=== PATIENT | male | born 1945 | race Caucasian/White ===

== ENCOUNTER 2017-07-11 16:19 | Emergency (ER) | payer MEDICARE ==
--- NOTE | 2017-07-11 16:39 | ER Document Report ---
ED Medical Screen (RME) - General Chief Complaint: Urinary Problem Stated Complaint: BLOOD IN URINE Time Seen by Provider: 07/11/17 16:33 Mode of Arrival: Ambulatory Information source: Patient Notes: 72 yo with bladder cancer tx by dr. [email or web address] in [place] , bladder infusions 1 month ago, appt 07-16-17 for cystoscopy- oncologist [facility] (Chemo 1 year ago- prostate was "zapped" to shrink it 2 years ago). Since the bladde infusions occasionally gets blood clots bleeding, but yesterday has lots of blood 10 x worse. Usually has frequent urination but not all this blood. It would not slow up. No anticoagulants. Baby aspirin per day. 2 weeks of midline back pain [place] with urination. No fever. No nausea. No hx kidney stones. TRAVEL OUTSIDE OF THE [place] IN LAST 30 DAYS: No - Related Data Allergies/Adverse Reactions: No Known Allergies Allergy (Verified 07/22/15 18:03) Past Medical History Endocrine Medical History: Reports: Hx Diabetes Mellitus Type 2 Past Surgical History: Reports: Hx Abdominal Surgery - hernia repair, Hx Appendectomy, Hx Genitourinary Surgery - bladder tumor removal Physical Exam - Vital signs Vitals: Temp Pulse Resp BP Pulse Ox 98.4 F 80 14 161/77 H 100 07/11/17 16:28 07/11/17 16:28 07/11/17 16:28 07/11/17 16:28 07/11/17 16:28 Course - Vital Signs Vital signs: Temp Pulse Resp BP Pulse Ox 98.4 F 80 14 161/77 H 100 07/11/17 16:28 07/11/17 16:28 07/11/17 16:28 07/11/17 16:28 07/11/17 16:28
[2017-07-11 17:06] LABS: APPEARANCE,URINE TURBID; BILIRUBIN,URINE NEGATIVE (NEGATIVE); GLUCOSE, URINE >=500 mg/dL (NEGATIVE); KETONES,URINE NEGATIVE (NEGATIVE); LEUKOCYTE ESTERASE,URINE NEGATIVE (NEGATIVE); NITRITE,URINE NEGATIVE (NEGATIVE); PROTEIN,URINE >=500 mg/dL (NEGATIVE); URINE SPECIFIC GRAVITY 1.016; UROBILINOGEN,URINE NEGATIVE mg/dL (<2.0)
[2017-07-11 17:07] LABS: ABSOLUTE EOSINOPHILS # (AUTO) 0.1 10^3/uL (0.0-0.6); ABSOLUTE LYMPHOCYTES (AUTO) 1.1 10^3/uL (0.5-4.7); ABSOLUTE MONOCYTES (AUTO) 0.4 10^3/uL (0.1-1.4); ABSOLUTE NEUT (AUTO) 3.5 10^3/uL (1.7-8.2); BASOPHILS % (AUTO) 0.5 % (0-2); EOSINOPHILS % (AUTO) 1.4 % (0-6); HEMOGLOBIN 8.9 g/dL (13.5-17.0); LYMPHOCYTES % (AUTO) 21.3 % (13-45); MEAN CORPUSCULAR HEMOGLOBIN 31.8 pg (27.0-33.4); MEAN CORPUSCULAR VOLUME 94 fl (80-97); PLATELET COUNT 210 10^3/uL (150-450); RED BLOOD COUNT 2.78 10^6/uL (4.35-5.55); RED CELL DISTRIBUTION WIDTH 13.2 % (11.5-14.0); SEGMENTED NEUTROPHILS % (AUTO) 68.8 % (42-78); TOTAL CELLS COUNTED % (AUTO) 100 %; WHITE BLOOD COUNT 5.1 10^3/uL (4.0-10.5)
[2017-07-11 17:07] LABS: COLOR,URINE RED
[2017-07-11 17:17] LABS: INTERNATIONAL RATION (INR) 0.96; PROTHROMBIN TIME 13.5 SEC (11.4-15.4)
[2017-07-11 17:41] LABS: ALANINE AMINOTRANSFERASE 19 U/L (21-72); ALKALINE PHOSPHATASE 58 U/L (38-126); ANION GAP 13 (5-19); ASPARTATE AMINO TRANSFERASE 14 U/L (17-59); BILIRUBIN,TOTAL < 0.1 mg/dL (0.2-1.3); BLOOD UREA NITROGEN 37 mg/dL (7-20); CALCIUM 9.5 mg/dL (8.4-10.2); CARBON DIOXIDE 18 mmol/L (22-30); CHLORIDE 109 mmol/L (98-107); GLUCOSE 288 mg/dL (75-110); POTASSIUM 5.9 mmol/L (3.6-5.0); SODIUM 139.5 mmol/L (137-145); TOTAL PROTEIN 6.2 g/dL (6.3-8.2)
[2017-07-11] MEDS ORDERED: MORPHINE SULFATE 10 MG/ML INJ IV PRN (19:12)
[2017-07-11] MEDS ORDERED: NORMAL SALINE 1000 ML 1,000 ML IV ONE (19:12)
--- NOTE | 2017-07-11 19:15 | ER Document Report ---
ED General - General Chief Complaint: Urinary Problem Stated Complaint: BLOOD IN URINE Time Seen by Provider: 07/11/17 16:33 Mode of Arrival: Ambulatory Notes: Patient is a 72-year-old male with a past medical history of bladder cancer status post 5 tumor resections as well as chemotherapy receiving the last dose of chemotherapy 2 months ago who presents with 2-3 days of progressively worsening gross hematuria as well as bilateral flank pain worse than the left. Describes the flank pain as a constant, aching pain. Nothing improves or worsens his symptoms. He notes that every 20-30 minutes he is having episodes of urination with an associated large output of blood. He denies a history of this degree of hematuria in the past. He states that he was hoping he could "make it" to his scheduled urology follow-up appointment on 16 July but when he continued to have a large amount of hematuria he decided to come to the emergency department. He denies any fever, abdominal pain, vomiting, weakness or numbness. TRAVEL OUTSIDE OF THE [place] IN LAST 30 DAYS: No - Related Data Allergies/Adverse Reactions: No Known Allergies Allergy (Verified 07/22/15 18:03) Past Medical History - General Information source: Patient - Social History Smoking Status: Never Smoker Frequency of alcohol use: None Drug Abuse: None Lives with: Spouse/Significant other Family History: Reviewed & Not Pertinent Patient has suicidal ideation: No Patient has homicidal ideation: No Endocrine Medical History: Reports: Hx Diabetes Mellitus Type 2 Renal/ Medical History: Denies: Hx Peritoneal Dialysis Past Surgical History: Reports: Hx Abdominal Surgery - hernia repair, Hx Appendectomy, Hx Genitourinary Surgery - bladder tumor removal Review of Systems - Review of Systems Notes: Constitutional: Negative for fever. HENT: Negative for sore throat. Eyes: Negative for visual changes. Cardiovascular: Negative for chest pain. Respiratory: Negative for shortness of breath. Gastrointestinal: Positive for bilateral flank pain Genitourinary: Positive for hematuria Musculoskeletal: Negative for back pain. Skin: Negative for rash. Neurological: Negative for headaches, weakness or numbness. 10 point ROS negative except as marked above and in HPI. Physical Exam - Vital signs Vitals: Temp Pulse Resp BP Pulse Ox 98.4 F 80 14 161/77 H 100 07/11/17 16:28 07/11/17 16:28 07/11/17 16:28 07/11/17 16:28 07/11/17 16:28 Interpretation: Hypertensive Notes: PHYSICAL EXAMINATION: GENERAL: Appears somewhat uncomfortable but no acute distress HEAD: Atraumatic, normocephalic. EYES: Pupils equal round and reactive to light, extraocular movements intact, sclera anicteric, conjunctiva are normal. ENT: nares patent, oropharynx clear without exudates. Moderately dry mucous membranes. NECK: Normal range of motion, supple without lymphadenopathy LUNGS: Breath sounds clear to auscultation bilaterally and equal. No wheezes rales or rhonchi. HEART: Regular rate and rhythm without murmurs ABDOMEN: Soft, nontender, normoactive bowel sounds. No guarding, no rebound. No masses appreciated. Bilateral CVA tenderness worse in the left EXTREMITIES: Normal range of motion, no pitting or edema. No cyanosis. NEUROLOGICAL: No focal neurological deficits. Moves all extremities spontaneously and on command. PSYCH: Normal mood, normal affect. SKIN: Warm, Dry, normal turgor, no rashes or lesions noted. Course - Re-evaluation Re-evalutation: 07/11/17 19:13 Patient presents in acute renal failure, creatinine 2.7 without any history of renal failure. Patient is also anemic and again denies any chronic history of anemia with a hemoglobin of 8.9. He is also actively bleeding each time he urinates approximately every 30 minutes he states he bleeds extensively. Vital signs are otherwise within normal limits. He has mild CVA tenderness bilaterally. Concern for possible post renal azotemia with BUN/creatinine ratio at only 13. Patient also has mild hyperkalemia at 5.9. No EKG changes. Will obtain a CT abdomen pelvis without contrast to evaluate for hydronephrosis , bladder mass. Patient will require transfer [facility] where he follows for urology given his acute failure, anemia, active bleeding. 07/11/17 20:39 CT scan does show a 2 x 4 cm mass in the bladder obstructing the left urinary system with associated left-sided hydronephrosis. I have contacted [facility] or patient follows for urology for continuity of care and we do not have neurology coverage. The patient and his family at the bedside have been updated. 07/11/17 21:01 Patient has been accepted for transfer by Dr. ma at [facility]. Remains hemodynamically stable, is n.p.o., maintenance fluids ongoing. 07/11/17 23:40 Transport has arrived and patient is stable for transfer - Vital Signs Vital signs: Temp Pulse Resp BP Pulse Ox 98.4 F 80 20 140/69 H 96 07/11/17 23:26 07/11/17 21:41 07/11/17 23:26 07/11/17 23:26 07/11/17 23:26 - Laboratory Result Diagrams: 07/11/17 16:56 07/11/17 16:56 Laboratory results interpreted by me: 07/11/17 07/11/17 07/11/17 16:25 16:56 16:56 RBC 2.78 L Hgb 8.9 L Hct 26.0 L Potassium 5.9 H Chloride 109 H Carbon Dioxide 18 L BUN 37 H Creatinine 2.71 H Est GFR ( Amer) 28 L Est GFR (Non-Af Amer) 23 L Glucose 288 H Total Bilirubin < 0.1 L AST 14 L ALT 19 L Total Protein 6.2 L Urine Protein >=500 H Urine Glucose (UA) >=500 H Urine Blood SMALL H - Diagnostic Test Radiology reviewed: Image reviewed, Reports reviewed - EKG Interpretation by Me Additional EKG results interpreted by me: 07/11/17 21:02 Normal sinus rhythm. Rate 68. No ST elevations or depressions. No peaked T waves or widened QRS complexes. QTC is 400. Discharge - Discharge Clinical Impression: Acute blood loss anemia, Hydronephrosis, left, Bladder neoplasm Acute renal failure Qualifiers: Acute renal failure type: unspecified Qualified Code(s): N17.9 - Acute kidney failure, unspecified Condition: Fair Disposition: [facility]
--- NOTE | 2017-07-11 19:50 | RADIOLOGY REPORT (SQ) ---
EXAM DESCRIPTION: CT ABD/PELVIS NO ORAL OR IV COMPLETED DATE/TIME: 07/11/2017 7:32 pm REASON FOR STUDY: eval urinary obstruction, hematuria, renal failure COMPARISON: None. TECHNIQUE: CT scan of the abdomen and pelvis performed without intravenous or oral contrast. Images reviewed with lung, soft tissue, and bone windows. Reconstructed coronal and sagittal MPR images revi ewed. All images stored on PACS. All CT scanners at this facility use dose modulation, iterative reconstruction, and/or weight based d osing when appropriate to reduce radiation dose to as low as reasonably achievable (ALARA). [facility]: Dose Right [facility]: CareDose [facility]: Dose Right [facility]: Teradose 4D [facility]: Smart [employer] RADIATION DOSE: CT Rad equipment meets quality standard of care and radiation dose reduction techniq ues were employed. CTDIvol: 12.2 mGy. DLP: 736 mGy-cm.mGy. LIMITATIONS: None. FINDINGS: A 4 x 6 cm tumor is present along the bladder trigone, with hemorrhage layering dependentl y in the bladder lumen. There is obstruction of the distal left ureter, with moderate left hydroneph rosis and hydroureter. No pelvic adenopathy. No pelvic free fluid. Grossly normal size prostate and seminal vesicles. Rec natalia unremarkable LOWER CHEST: No significant findings. No nodules or infiltrates. NON-CONTRASTED LIVER, SPLEEN, ADRENALS: Evaluation limited by lack of IV contrast. No identified sign ificant masses. PANCREAS: No masses. No peripancreatic inflammatory changes. GALLBLADDER: No identified stones by CT criteria. No inflammatory changes to suggest cholecystitis. RIGHT KIDNEY AND URETER: No suspicious masses. 1 cm cyst right upper pole kidney. Assessment limite d by lack of IV contrast. No significant calcifications. No hydronephrosis or hydroureter. LEFT KIDNEY AND URETER: No suspicious masses. Assessment limited by lack of IV contrast. No signifi cant calcifications. Moderate left hydronephrosis and hydroureter related to obstruction by bladder tumor AORTA AND RETROPERITONEUM: No aneurysm. No retroperitoneal masses or adenopathy. BOWEL AND PERITONEAL CAVITY: No obvious masses or inflammatory changes. No free fluid. APPENDIX: Normal. PELVIS, BLADDER, AND ABDOMINAL WALL:As above. No ventral hernia BONES: No significant findings. OTHER: No other significant finding. IMPRESSION: Moderate left hydronephrosis and hydroureter related to distal ureteral obstruction by a bladder tumor, with associated hemorrhage in the bladder lumen COMMENT: Quality ID # [id number]: Final reports with documentation of one or more dose reduction techniques (e.g., Automated exposure control, adjustment of the mA and/or kV according to patient size, use of iterative reconstruction technique) TECHNICAL DOCUMENTATION: JOB ID: [id number] [employer]- All Rights Reserved
--- NOTE | 2017-07-11 22:30 | EKG REPORT ---
SEVERITY:- ABNORMAL ECG - SINUS RHYTHM NONSPECIFIC -T INVERSIONS ANTEROSEPTAL WALL : Confirmed by: Chiki Mckeon MD 11-Jul-2017 22:29:22
[2017-07-11 23:48] VITALS: BP 140/69
== END 2017-07-11 23:30 | disposition short-term general hospital (02) ==
LOC: ER 16:19
DX: D62 Acute posthemorrhagic anemia (principal); N13.30 Unspecified hydronephrosis; N31.2 Flaccid neuropathic bladder, not elsewhere classified; N17.9 Acute kidney failure, unspecified; R39.198 Other difficulties with micturition; R31.9 Hematuria, unspecified; R10.9 Unspecified abdominal pain
CPT/HCPCS: 93005; 99285; 96361; 96374; 86900; 86901; 36415; 87086; 86850; 85025; 85610; 85730; 80053; 81001; 74176; 93010; J2270; J7030